=== PATIENT | male | born 1950 | race Caucasian/White ===

== ENCOUNTER 2018-02-08 11:44 | Observation (INO) | payer OTHER ==
[~2018-02-08] VITALS: Ht 180.3 cm; Wt 74.2 kg
[2018-02-08 12:53] LABS: BASOPHILS # (AUTO) 0.1 (0.0-0.1); BASOPHILS % 0.7 % (0.0-1.0); EOSINOPHILS # (AUTO) 0.2 (0.0-0.4); EOSINOPHILS % 2.7 % (0.0-6.0); HEMATOCRIT 36.8 % (38.2-49.6); HEMOGLOBIN 13.5 g/dL (14.0-18.0); LYMPHOCYTES # (AUTO) 2.1 (1.0-3.2); LYMPHOCYTES % 31.2 % (18.0-39.1); MEAN CORPUSCULAR HEMOGLOBIN 32.5 pg (28-32); MEAN CORPUSCULAR HGB CONC 36.7 g/dL (31-35); MEAN CORPUSCULAR VOLUME 88.5 fL (81-99); MONOCYTES # (AUTO) 0.6 (0.2-0.8); MONOCYTES % 8.9 % (4.4-11.3); NEUTROPHILS # (AUTO) 3.8 (2.1-6.9); NEUTROPHILS % 56.4 % (38.7-80.0); PLATELET COUNT 221 x10e3/uL (140-360); RED BLOOD COUNT 4.16 x10e6/uL (4.3-5.7); RED CELL DISTRIBUTION WIDTH 12.5 % (11.7-14.4)
[2018-02-08 12:57] LABS: CLARITY,URINE CLOUDY (CLEAR); COLOR,URINE RED (YELLOW); KETONES,URINE TRACE (NEGATIVE); LEUKOCYTE ESTERASE ,URINE 1+ (NEGATIVE); NITRITE,URINE POSITIVE (NEGATIVE); PROTEIN,URINE DIPSTICK 3+ (NEGATIVE)
[2018-02-08 12:58] LABS: BILIRUBIN,URINE 1+ (NEGATIVE); URINE UROBILINOGEN 1 mg/dL (0.2 - 1)
[2018-02-08 13:06] LABS: INR 1.19; PROTHROMBIN TIME 14.2 seconds (11.9-14.5)
[2018-02-08 13:07] LABS: PARTIAL THROMBOPLASTIN TIME 32.8 seconds (23.8-35.5)
[2018-02-08 13:11] LABS: BACTERIA,URINE MODERATE /HPF; EPITHELIAL CELLS,URINE RARE /LPF; RBC,URINE >50 /HPF (0-5); WBC,URINE (MAN) 21-50 /HPF (0-5)
[2018-02-08 13:19] LABS: ALBUMIN 3.7 g/dL (3.5-5.0); ALBUMIN/GLOBULIN RATIO 1.2 (0.8-2.0); ANION GAP 10.1 mmol/L (8-16); CALCIUM 9.3 mg/dL (8.4-10.2); CREATININE, SERUM 1.21 mg/dL (0.72-1.25); POTASSIUM 4.1 mmol/L (3.5-5.1)
[2018-02-08] MEDS ORDERED: CEFTRIAXONE SOD 1 GM VIAL IV ONE (13:30)
[2018-02-08] MEDS ORDERED: SODIUM CHLORIDE 0.9% 1000ML 1,000 ML IV SCH (13:30)
[2018-02-08] MEDS: CEFTRIAXONE SOD 1 GM VIAL IV SCH ×2 (14:11→20:57)
[2018-02-08] MEDS ORDERED: ONDANSETRON HCL INJ 2 MG/ML VIAL IV PRN (14:30)
[2018-02-08] MEDS: SODIUM CHLORIDE 0.9% 1000ML 1,000 ML IV SCH ×2 (15:26→17:52)
--- OUTSIDE RECORDS SUMMARY | 2018-02-08 15:39 | XMS REPORT ---
Author Author [facility] Address Unknown Phone Unavailable Care Team Providers Care Post Framer Name Role Phone Pant Rosalia Manzano Unavailable Unavailable Problems This patient has no known problems. Allergies, Adverse Reactions, Alerts This patient has no known allergies or adverse reactions. Medications This patient has no known medications. Results Test Description Test Time Test Comments Text Results Atomic Results Result Comments Hepatitis B virus core IgM antibody assay 2017-06-16 18:39:00 SERUM FREE LIGHT CHAINS Nonreactive^^SCT^Nonreactive SANDER screen 2017-06-16 18:39:00 Antinuclear antibody screen (test dhwx=FBV5561) Negative Negative SANDER IFA is a first line screen for detecting the presence of up to approximately 150 autoantibodies in various autoimmune diseases. A negative SANDER IFA result suggests SANDER-associated autoimmune diseases are not present at this time. Visit Physician FAQs for interpretation of all antibodies in the [place], prevalence, and association with diseases at: http://education.InnSania/faq/ ABT859 SANDER Pattern 2 (test code=ANATEST) Not indicated SERUM FREE LIGHT CHAINSSerum protein electrophoresis with interpretation and reflex quantitation of B-ypxwl1011-36twfky8584-98-06 18:39:00* Test Item Value Reference Range Comments Total protein (test fkbz=TNI2595) 7.0 g/dL 6.1-8.1 Serum albumin measurement by protein electrophoresis (test pjce=2096-1) 4.1 g/ dL 3.8-4.8 Serum tbmnw-2-yragtdon measurement (test asjq=8408-0) 0.4 g/dL 0.2-0.3 Serum ehwjb-9-qyqnzkjm measurement (test bjra=0030-0) 1.1 g/dL 0.5-0.9 Beta 1 Globulin (test code=SPE6A) 0.4 g/dL 0.4-0.6 Beta 2 Globulin (test code=SPE6B) 0.2 g/dL 0.2-0.5 Body fluid gamma globulin measurement by electrophoresis (mass/volume) (test hnjd=43428-1) 0.9 g/dL 0.8-1.7 Abnormal Protein Band 1 (test code=SPE7A) REPORT No M Grant detected. Interpretation of serum or plasma protein fractions by electrophoresis (test wxig=17525-5) REPORT Alpha-1 globulin increase noted. Isolated elevation of alpha-2 globulins. Suggestive of acute inflammation. SERUM FREE LIGHT CHAINSImmunoglobulin A, G and M ywfmdwpaoyt8821-98-09 18:39:00 * Test Item Value Reference Range Comments Body fluid IgA measurement (mass/volume) (test ixlt=12345-0) 102 mg/dL 81- 463 Body fluid IgG measurement (mass/volume) (test owum=58239-1) 953 mg/dL 694- 1618 Body fluid IgM measurement (mass/volume) (test lenm=15180-5) 205 mg/dL 48- 271 SERUM FREE LIGHT CHAINSHIV-1 and HIV-2 oziegepmr0869-53-07 18:39:00* Test Item Value Reference Range Comments Serum HIV-1 and HIV-2 antibody detection by immunoassay (test jrlc=24988-7) Non-reactive Non-reactive HIV-1 antigen and HIV-1/HIV-2 antibodies were not detected. There is no laboratory evidence of HIV infection. PLEASE NOTE This information has been disclosed to you from records whose confidentiality may be protected by state law. If your state requires such protection, then the state law prohibits you from making any further disclosure of the information without the specific written consent of the person to whom it pertains, or as otherwise permitted by law. A general authorization for the release of medical or other information is NOT sufficient for this purpose. The performance of this assay has not been clinically validated in patients less than 2 years old. For additional information, please refer to http://education.BangTango.Circadence/ faq/TZA311 Serum HIV 1+2 antibody detection (test zczl=5221-2) Not indicated. HIV1-RNA QL TMA (test code=HIV1-RNAQLTMA) Not indicated. SERUM FREE LIGHT CHAINSImmunofixation mlpumihirgbcmed9323-97-73 18:39:00* Test Item Value Reference Range Comments Immunofixation electrophoresis (test ydtv=BQI8770) REPORT Free monoclonal lambda band present Reference Range: No monoclonal proteins detected SERUM FREE LIGHT CHAINSHep B Surface AG w/ Oaltwlg5790-66-87 18:39:00* Test Item Value Reference Range Comments Serum hepatitis B virus surface antigen detection (test pcnp=5717-3) Nonreactive Nonreactive Confirmatory hepatitis B virus surface antigen assay (test ftee=79557-0) REPORT Not required according to the current package insert. SERUM FREE LIGHT CHAINSMiscellaneous Test Ibw9340-28-66 18:39:00* Test Item Value Reference Range Comments Miscellaneous Test Lab (test code=MISC) SENT SERUM FREE LIGHT CHAINS Specimen sent to [facility]. Results to follow. SERUM FREE LIGHT CHAINSHepatitis B Surface Nhdgrrfh5271-28-45 18:39:00* Test Item Value Reference Range Comments Hepatitis B Surface Antibody (test code=HEPBAB) Nonreactive Nonreactive Effective January 13, 2014 this test is being performed using the [employer] Chemiluminesence method. SERUM FREE LIGHT CHAINSAnti-Double Strand DNA Krkggux4509-51-59 18:39:00* Test Item Value Reference Range Comments Anti-Double Strand DNA Antibod (test code=ANTI-DNA) 1 <=4 Value Interpretation <or=4 IU/mL: Negative 5 - 9 IU/mL: Indeterminate >or=10 IU/mL: Positive SERUM FREE LIGHT CHAINSErythropoietin jfqnqznmmcu7018-62-05 18:39:00* Test Item Value Reference Range Comments Erythropoietin measurement (test gxax=52745-0) 13.4 [iU]/L 2.6-18.5 SERUM FREE LIGHT CHAINSPERIPHERAL BLOOD SMEAR FOR JKRKET1298-73-52 09:31:00----- ------- RUN DATE: 06/13/17 [facility]*Live* PAGE 1 RUN TIME: 930 Specimen Inquiry PATIENT: JOS CAMERON ACCT: [id number] LOC: TYREE U: [id number] AGE/SX: 67/M ROOM: RE06/12/17REG DR: Rosalia Hugo : 1950 BED: DIS: STATUS: REG REF TLOC: SPEC : [id number] RECD: 06/13/17 STATUS: SERA HANCOCK NUM: [id number] ULI: 06/12/17 [facility] DR: Rosalia Hugo MD ENTERED: 06/13/17 SP TYPE: TRACY BAUGH DR: ORDERED: BLOOD SMEAR CODES: BLOOD, NOS PROCEDURES: BLOOD SMEAR (06/13/17) TISSUES: BLOOD, NOS - PERIPHERAL SMEAR CLINICAL HISTORY Pre-op Diagnosis: Not stated.Post-op Diagnosis: Not stated. DIAGNOSIS Peripheral blood smear: - Mildly elevated hematocrit (50.5%) CPT 99846 GROSS DESCRIPTION The case is received in one part labeled with the patient's name "Jos Cameron" andaccession #[id number] , accompanied by a requisition slip labeled with the patient's name andthe same accession number. Received are two peripheral blood smears for pathology review at the request of Dr. Izquierdo.(W) MICROSCOPIC DESCRIPTION The white blood cell count is within normal limits at 9,000. The manual differential countis as follows: 61% segmented neutrophils, 26% lymphocytes, 11% monocytes, 1% eosinophilsand 1% basophils. The smear shows a normal number of white blood cells consisting mostly ofsegmented neutrophils. No blasts are identified. The hemoglobin is within normal limits at17.6 and the hematocrit is mildly increased at 50.5%. The MCV and MCH are within normallimits. The red cells appear normocytic and normochromic. The platelet count is withinnormal limits at 277,000. The smear appears to reflect the normal platelet count. Signed (signature on file) Tori Pastor MD 06/13/17 0931 END OF REPORT Erythrocyte sedimentation rate (ESR) by Westergren vsttzc8203-93- 09 21:29:00* Test Item Value Reference Range Comments Erythrocyte sedimentation rate (ESR) by Westergren method (test kozu=7154-6) 14 mm/HR 0-20 Retic Myzat2934-41-24 21:29:00* Test Item Value Reference Range Comments Blood erythrocytes count (number/volume) (test tcxl=89080-9) 5.31 M/ul 4.33- 5.43 Absolute reticulocyte count and percent (test thtv=KQO0370) 0.92 % 0.4-2.05 Absolute reticulocyte count (test uuts=25993-1) 0.05 M/ul 0.02-0.11 Comprehensive metabolic uumxw0131-28-68 20:53:00* Test Item Value Reference Range Comments Sodium level (test axrb=XRA2726) 135 meq/L 135-145 4.1 Chloride measurement (test zldo=OIQ8527) 101 meq/L 101-111 Bicarbonate (test code=CO2) 26 meq/L 21-31 Glucose measurement (test iyfs=DSS2418) 116 mg/dL 65-120 ADA Clinical Practice Recommendation: <100 mg/dl=Normal Fasting Glucose BUN Bld-mCnc (test coni=3661-1) 11 mg/dL 6-20 Creatinine measurement (test ruqk=KSX4182) 1.15 mg/dL 0.61-1.24 The creatinine method used has been calibrated to be traceable to Isotope dilution Mass Spectrometry (IDMS). For more information: www.nkdep.nih.gov Estimated glomerular filtration rate (GFR) determination (test qoxt=83211-3) 63 mL =/>90 FOR CHRONIC KIDNEY DISEASE: GFR STAGE DESCRIPTION =/>90 STAGE 1 NORMAL--OR-- MINIMAL KIDNEY DAMAGE WITH NORMAL GFR 60-89 STAGE 2 MILD DECREASE IN GFR 30-59 STAGE 3 MODERATE DECREASE IN GFR 15-29 STAGE 4 SEVERE DECREASE IN GFR <15 STAGE 5 KIDNEY FAILURE The Glomerular Filtration Rate (GFR) has been calculated using the IDMS-Traceable MDRD Study Equation. Aspartate aminotransferase (AST) measurement (test shij=AHA0835) 21 [iU]/L 10 -42 ALT/SGPT (test code=SGPT) 13 [iU]/L 10-60 Alkaline Phosphatase (test code=ALK) 85 [iU]/L 42-121 Bilirubin total (test qrup=OLA2364) 0.5 mg/dL 0.3-1.2 Calcium Level (test code=CA) 9.2 mg/dL 8.5-10.5 Serum total protein measurement (test xarr=8831-6) 7.1 g/dL 6.0-8.3 Albumin measurement (test smpt=XPU5783) 4.1 g/dL 3.2-5.5 Globulin (test code=GLOB) 3.0 g/dL 2.3-3.5 Albumin/Globulin Ratio (test code=A/G) 1.4 1.1-1.8 Lactate dehydrogenase (LDH) oshhqsfbfsj5332-35-18 20:53:00* Test Item Value Reference Range Comments Lactate dehydrogenase (LDH) measurement (test mque=LPE1429) 133 [iU]/L 125- 240 C-Reactive Qzfozie9205-79-91 20:53:00* Test Item Value Reference Range Comments C-Reactive Protein (test code=CRP) 12.2 mg/L <10.0 Thyroid Stimulating Hktracb5151-32-42 20:53:00* Test Item Value Reference Range Comments Thyroid Stimulating Hormone (test code=TSH) 2.26 [iU]/L 0.34-5.60 Total iron binding capacity and transferrin saturation juubgyrbcfe4807-05-66 20: 53:00* Test Item Value Reference Range Comments Iron, serum (test xnsh=4074-3) 83.0 ug/dL 45-182 Iron Binding (test code=IBCT) 325 ug/dL 250-460 Transferrin (test voyh=2756-9) 232 mg/dL 180-329 % Transferrin Saturation (test code=%SAT) 25.5 % 20.0-50.0 Ivnqyxhq3967-73-08 20:53:00* Test Item Value Reference Range Comments Ferritin (test code=LEWIS) 45.5 ng/mL 23.9-336.2 Folic Acid, Serum (Folate)2017-06-12 20:53:00* Test Item Value Reference Range Comments Folic Acid, Serum (Folate) (test code=FOL) 15.9 ng/mL >5.21 Vitamin B12 dwiau9395-58-45 20:53:00* Test Item Value Reference Range Comments Vitamin B12 level (test zkfq=3528-4) 883 pg/mL 180-914
[2018-02-08 16:29] VITALS: BP 167/79
[2018-02-08] MEDS ORDERED: LISINOPRIL10 MG PO (17:25)
[2018-02-08] MEDS ORDERED: AMLODIPINE BESY10 MG PO (17:25)
[2018-02-08] MEDS ORDERED: OMEPRAZOLE40 MG (17:25)
[2018-02-08 17:26] VITALS: BP 167/79
[2018-02-08 19:00] VITALS: BP 167/79
[2018-02-08 19:59] VITALS: BP 163/73
[2018-02-09] VITALS (8 sets, daily range): BP systolic 119–160; BP diastolic 59–77
[2018-02-09] MEDS: SODIUM CHLORIDE 0.9% 1000ML 1,000 ML IV SCH ×4 (01:43→21:20)
[2018-02-09 05:38] LABS: BASOPHILS % 0.6 % (0.0-1.0); EOSINOPHILS # (AUTO) 0.4 (0.0-0.4); HEMATOCRIT 34.5 % (38.2-49.6); HEMOGLOBIN 12.5 g/dL (14.0-18.0); LYMPHOCYTES # (AUTO) 2.3 (1.0-3.2); MEAN CORPUSCULAR HEMOGLOBIN 32.5 pg (28-32); MEAN CORPUSCULAR HGB CONC 36.2 g/dL (31-35); MEAN CORPUSCULAR VOLUME 89.6 fL (81-99); MONOCYTES # (AUTO) 0.6 (0.2-0.8); NEUTROPHILS # (AUTO) 3.6 (2.1-6.9); NEUTROPHILS % 52.1 % (38.7-80.0); PLATELET COUNT 197 x10e3/uL (140-360); RED BLOOD COUNT 3.85 x10e6/uL (4.3-5.7); RED CELL DISTRIBUTION WIDTH 12.6 % (11.7-14.4)
[2018-02-09 05:56] LABS: BLOOD UREA NITROGEN 14 mg/dL (7-26); BUN/CREATININE RATIO 13 (6-25); CALCIUM 8.7 mg/dL (8.4-10.2); CARBON DIOXIDE 27 mmol/L (22-29); CHLORIDE 100 mmol/L (98-107); CREATININE, SERUM 1.09 mg/dL (0.72-1.25); EST GLOMERULAR FILTRATION RATE > 60 ML/MIN (60-); GLUCOSE 101 mg/dL (74-118); SODIUM 133 mmol/L (136-145)
[2018-02-09] MEDS: CEFTRIAXONE SOD 1 GM VIAL IV SCH ×2 (08:51→21:20)
--- NOTE | 2018-02-09 10:29 | History and Physical ---
PCP: TEACHER LIP READING: Dr. Goldy Tidwell CHIEF COMPLAINT: Persistent gross hematuria. HISTORY: Patient is a 68-year-old male with a history of prostate cancer years ago. He had radiation treatment, but for the past month he is having recurrent hematuria. The patient was seen by , his PCP. Ultrasound was ordered and subsequently found a small spot in the urinary bladder. The patient with persistent hematuria. The patient now is on observation for further evaluation. Patient will need cystoscopy. PAST MEDICAL HISTORY: Prostate cancer with radiation treatment years ago. SOCIAL HISTORY: Patient does not smoke or use alcohol. No regular drugs. ALLERGIES: NO KNOWN ALLERGIES. HOME MEDICATIONS: Norvasc, omeprazole and lisinopril. PHYSICAL EXAMINATION VITAL SIGNS: Temperature is 98, blood pressure 133/64, pulse rate is 80, respirations 18. GENERAL: The patient is not in acute distress. He is awake. HEENT: Normocephalic, atraumatic and anicteric. NECK: Supple grossly. PULMONARY: Diminished breath sounds without any wheeze. CARDIOVASCULAR: S1 and S2. Regular rate and rhythm. ABDOMEN: Soft. Positive bowel sounds. Nontender. No distention. EXTREMITIES: No gross cyanosis or edema. NEUROLOGIC: There is no gross focal deficit. LABORATORY: Reviewed. Hemoglobin and hematocrit is 12.5 and 34.5. BUN and creatinine are 14 and 1.09 respectively. IMPRESSION 1. Gross hematuria. 2. Possible recurrent cystitis. 3. Possible urinary bladder lesion. PLAN: Continue with current medications. IV antibiotics. Home medications resumed. Cystoscopy per Dr. Goldy Tidwell. Job#: [id number] [place]
[2018-02-09] MEDS ORDERED: FENTANYL CITRATE/PF 100MCG/2 ML INJ ONE (14:42)
[2018-02-09] MEDS ORDERED: AMLODIPINE BESYLATE 10 MG TAB PO ONE (17:00)
[2018-02-09] MEDS ORDERED: IOPAMIDOL 610MG/1ML 300 MG/ML VIAL IV ONE (17:20)
[2018-02-09] MEDS ORDERED: BELLADONNA/OPIUM 30 MG SUPP RC ONE (17:49)
[2018-02-09] MEDS ORDERED: LIDOCAINE HCL 2% LOCAL INJ 5 ML SDV VIAL INJ ONE (18:25)
[2018-02-09] MEDS ORDERED: SEVOFLURANE INHAL SOLN 250 ML PEN BTL ONE (18:25)
[2018-02-09] MEDS ORDERED: ONDANSETRON HCL INJ 2 MG/ML VIAL ONE (18:25)
[2018-02-09] MEDS ORDERED: DEXAMETHASONE SOD PHOS INJ 4 MG/ML VIAL ONE (18:25)
[2018-02-09] MEDS ORDERED: PROPOFOL IV EMULSION 10 MG/ML 20 ML VIAL ONE (18:25)
[2018-02-10] VITALS: BP 118/60
[2018-02-10 04:00] VITALS: BP 125/59
[2018-02-10] MEDS: SODIUM CHLORIDE 0.9% 1000ML 1,000 ML IV SCH (04:48)
[2018-02-10 05:33] LABS: BASOPHILS % 0.4 % (0.0-1.0); EOSINOPHILS # (AUTO) 0.3 (0.0-0.4); HEMOGLOBIN 12.6 g/dL (14.0-18.0); LYMPHOCYTES # (AUTO) 2.3 (1.0-3.2); LYMPHOCYTES % 24.6 % (18.0-39.1); MEAN CORPUSCULAR HEMOGLOBIN 32.4 pg (28-32); MONOCYTES # (AUTO) 0.8 (0.2-0.8); MONOCYTES % 8.9 % (4.4-11.3); NEUTROPHILS # (AUTO) 5.9 (2.1-6.9); NEUTROPHILS % 62.9 % (38.7-80.0); PLATELET COUNT 204 x10e3/uL (140-360); RED BLOOD COUNT 3.89 x10e6/uL (4.3-5.7); RED CELL DISTRIBUTION WIDTH 12.5 % (11.7-14.4)
[2018-02-10 08:05] LABS: ANION GAP 13.1 mmol/L (8-16); BLOOD UREA NITROGEN 11 mg/dL (7-26); BUN/CREATININE RATIO 11 (6-25); CALCIUM 8.5 mg/dL (8.4-10.2); CARBON DIOXIDE 24 mmol/L (22-29); CHLORIDE 105 mmol/L (98-107); CREATININE, SERUM 1.03 mg/dL (0.72-1.25); EST GLOMERULAR FILTRATION RATE > 60 ML/MIN (60-); GLUCOSE 90 mg/dL (74-118); POTASSIUM 4.1 mmol/L (3.5-5.1); SODIUM 138 mmol/L (136-145)
[2018-02-10 08:17] VITALS: BP 136/65
[2018-02-10 08:27] VITALS: BP 136/65
[2018-02-10] MEDS: CEFTRIAXONE SOD 1 GM VIAL IV SCH (08:53)
[2018-02-10] MEDS ORDERED: PANTOPRAZOLE SOD 40 MG TABEC PO SCH (09:00)
[2018-02-10] MEDS ORDERED: AMLODIPINE BESYLATE 10 MG TAB PO SCH (09:00)
[2018-02-10] MEDS ORDERED: PHENAZOPYRIDINE HCL 100 MG TAB PO SCH ×2 (09:00)
[2018-02-10] MEDS ORDERED: TYLENOL WITH C1 EACH PO (10:43)
--- NOTE | 2018-02-10 11:16 | Discharge Summary ---
ELECTRIC DOLLY OPERATOR: Dr. Goldy Tidwell. FINAL DIAGNOSES: 1. Hematuria, status post cystoscopy with diagnosis of clot retention. 2. Urinary bladder lesion, status post cystoscopy with clot evacuation and bladder biopsy and fulguration of the lesion. SUMMARY: A 68-year-old male came in with hematuria. The patient is stable. He is status post cystoscopy. Urine is clean. The patient is going home with a Johnston catheter. Prescription given. He will follow up with Dr. Goldy Tidwell as an outpatient. The patient is otherwise stable. Johnston care per Dr. Tidwell. Patient will discharge home, resume home medication. Job#: [id number] [place]
--- NOTE | 2018-03-19 10:34 | Operative Report ---
DATE OF PROCEDURE: February 09, 2018 PREOPERATIVE DIAGNOSIS: Gross hematuria. POSTOPERATIVE DIAGNOSES 1. Gross hematuria. 2. 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 3. Blood clot within the bladder. PROCEDURES PERFORMED 1. Cystourethroscopy with evacuation of blood clot from within the bladder. 2. Cystourethroscopy with bilateral ureteral catheterization and retrograde ureteropyelography (separate procedure performed for the gross hematuria). 3. Interpretation of retrograde ureteropyelography. 4. Supervision of fluoroscopy. No radiologist present. 5. Cystourethroscopy with transurethral resection of the right lateral wall bladder tumor (separate procedure performed for the bladder lesion). ANESTHESIA: General. COMPLICATIONS: None. CLINICAL SUMMARY: Jos Cameron is a 68-year-old man who presented with gross hematuria. He has a history of prostate cancer, and he is anemic. He is brought for the above procedures. He is aware of the risks of bleeding, infection, injury to adjacent structures, need for additional procedures and elected to proceed. OPERATIVE PROCEDURE IN DETAIL: Informed consent was verified. Jos Cameron was properly identified, taken to the operating room, and placed on the cystoscopy table in the supine position. Anesthesia was uneventfully begun. The patient was then carefully and gently repositioned in the dorsal lithotomy position with all pressure points well padded. His genitalia were prepared and draped in the usual sterile fashion. A 22.5-Irish cystourethroscope sheath with visual obturator in place was atraumatically inserted into the patient's urethra. It was guided down the unremarkable distal urethra past a wide-caliber, nonobstructing, bulbar stricture and then through the normal sphincteric region. Then we entered into the patient's prostate bed, which was significant for BPH. We entered the patient's bladder where there was a lesion in the right lateral wall that appeared to be actively oozing. There were no other suspicious mucosal lesions. There were no other tumors. There were no stones. Blood clots were noted. We evacuated the blood clots out of the patient's bladder and redid our panendoscopy, which had consistent results. An 8-Irish catheter was used to cannulate each ureter, and retrograde ureteropyelograms were performed. Interpretation of retrograde ureteropyelography: Contrast was instilled in retrograde fashion bilaterally. There were no tumors, no stones and no diverticula. Unobstructed drainage was observed bilaterally fluoroscopically. Cold cup biopsy forceps were then utilized to biopsy the lesion noted in the right lateral wall. We then utilized the Bugbee electrode to fulgurate the 3-cm region involving the lesion and all surrounding mucosa. The patient's bladder was then drained. The patient was uneventfully reversed from anesthesia and taken to the recovery room in stable condition. There were complications to the procedure. He tolerated the procedure well. We will proceed with ongoing urological follow. Job#: [id number]
== END 2018-02-10 13:00 | disposition home or self-care (01) ==
LOC: ER 11:44 → ERHOLD 15:36 → MED/SURG 15:39
PROVIDERS: ADMIT Internal Medicine; ATTEND Internal Medicine
DX: C67.2 Malignant neoplasm of lateral wall of bladder (principal); N30.01 Acute cystitis with hematuria; Z85.46 Personal history of malignant neoplasm of prostate; N32.89 Other specified disorders of bladder; D64.9 Anemia, unspecified; E87.0 Hyperosmolality and hypernatremia; K21.9 Gastro-esophageal reflux disease without esophagitis; I12.9 Hypertensive chronic kidney disease with stage 1 through stage 4 chronic kidney disease, or unspecified chronic kidney disease; N18.9 Chronic kidney disease, unspecified
CPT/HCPCS: 36415 ×3; 52001; 52005; 52235; 74420; 80048 ×2; 80053; 81001; 85025 ×3; 85610; 85730; 87086; 88305; 99284; C1758; G0378 ×3; J0696 ×3; J1100; J2001; J2405; J7030 ×3; Q9967; S0164